=== PATIENT | female | born 1945 | race Caucasian/White ===

== ENCOUNTER 2021-12-23 14:18 | Inpatient (IN) | payer OTHER ==
[~2021-12-23] VITALS: Ht 142.2 cm; Wt 34.9 kg
[2021-12-23 15:00] VITALS: BP_SYST 114
--- NOTE | 2021-12-23 15:04 | NUR ---
Triaged pt and placed in Tent. Pt accompanied by daughter. Pt is A&Ox4. C/O RUQ pain 4/10, fever, chills, body aches. NKA. Has hx of GI surgery, Hysterectomy, Colonectomy, Ataxia, Short Bowel Syndrome. Pt in wheelchair but can ambulate at home. Currently has a stent in gallbladder and has a schedules surhery at the end of this month to have gallbladder removed. No chest pain and no sob. Denies n/v.
--- NOTE | 2021-12-23 15:30 | NUR ---
Patient to ER Tent 1 to gown for evaluation. Side rails up. Report given to Elise CRUZ.
[2021-12-23 15:37] LABS: BASOPHILS % (AUTO) 0.7 % (0.0-2.0); EOSINOPHILS % (AUTO) 0.4 % (0.0-4.0); HEMATOCRIT 36.5 % (36-48); HEMOGLOBIN 12.5 g/dL (12.0-16.0); LYMPHOCYTES # (AUTO) 0.7 K/uL (1.0-5.5); LYMPHOCYTES % (AUTO) 10.5 % (20.5-51.5); MEAN CORPUSCULAR HEMOGLOBIN 33 pg (27-31); MEAN CORPUSCULAR HGB CONC 34 % (32-36); MEAN CORPUSCULAR VOLUME 97 fL (79.0-98.0); MONOCYTES # (AUTO) 0.6 K/uL (0.0-1.0); MONOCYTES % (AUTO) 8.5 % (1.7-9.3); NEUTROPHILS # (AUTO) 5.4 K/uL (1.8-7.7); NEUTROPHILS % (AUTO) 79.9 % (40.0-70.0); PLATELET COUNT (AUTO) 168 K/uL (130-430); RED BLOOD CELL COUNT(AUTO) 3.78 MIL/uL (4.2-6.2); RED CELL DISTRIBUTION WIDTH 13.2 % (9.0-15.0); WHITE BLOOD COUNT (AUTO) 6.7 K/uL (4.8-10.8)
[2021-12-23 15:58] LABS: ANION GAP 9 (5-15); CALCIUM 9.5 mg/dL (8.4-11.0); CHLORIDE 104 mmol/L (98-107); CREATININE 1.03 mg/dL (0.55-1.30); GLUCOSE 110 mg/dL (70-99); POTASSIUM 5.2 mmol/L (3.5-5.1); SODIUM SERUM 142 mmol/L (136-145); UREA NITROGEN, BLOOD 23 mg/dL (8-21)
[2021-12-23 16:04] LABS: ALANINE AMINOTRANSFERASE 18 U/L (12-78); ALBUMIN 3.8 g/dL (3.4-4.8); ASPARTATE AMINOTRANSFERASE 16 U/L (10-37); LIPASE 330 U/L (73-393); TOTAL BILIRUBIN 0.9 mg/dL (0.0-1.0)
--- NOTE | 2021-12-23 16:20 | NUR ---
ER at bedside examining patient.
--- NOTE | 2021-12-23 16:23 | NUR ---
Covid swab done and sent to lab.
--- NOTE | 2021-12-23 16:39 | NUR ---
Pt moved to bed #5 report given to Reanna LEONARDO
--- NOTE | 2021-12-23 16:40 | NUR ---
RECEIVED PT FROM JORDEN BRUCE. PT AAOX4. RESP E/U. ON R/A. NO DISTRESS NOTED. ABDOMEN SOFT, TENDER, NONDISTENDED. BOWEL SOUNDS X4 QUADS. PT DENIES N/V/C/D. URINE OBTAINED AND TAKEN TO LAB. PT RECEIVING U/S AT THIS TIME.
[2021-12-23] MEDS ORDERED: MORPHINE 4 MG INJ. 4 MG/ML VIAL IVP ONE (16:45)
--- NOTE | 2021-12-23 16:50 | NUR ---
PT RECEIVING U/S AT THIS TIME.
[2021-12-23 17:06] LABS: BILIRUBIN,URINE NEGATIVE (NEGATIVE); BLOOD, URINE 3+ (NEGATIVE); COLOR,URINE YELLOW (YELLOW); GLUCOSE,URINE NEGATIVE (NEGATIVE); KETONES,URINE NEGATIVE (NEGATIVE); LEUKOCYTE ESTERASE ,URINE NEGATIVE (NEGATIVE); NITRITE, URINE NEGATIVE (NEGATIVE); PH,URINE 5.5 (5.0-8.0); PROTEIN URINE NEGATIVE (NEGATIVE); UROBILINOGEN,URINE 0.2 (0.2-1.0)
[2021-12-23 17:20] LABS: CLARITY/URINE HAZY (CLEAR)
[2021-12-23 17:21] LABS: BACTERIA,URINE FEW /HPF (None Seen); MUCUS,URINE None Seen /LPF (None Seen); RBC,URINE 0-3 /HPF (0-3); WBC,URINE 0-3 /HPF (0-3)
--- NOTE | 2021-12-23 17:32 | NUR ---
PATIENT IS REFUSING MORPHINE AT THIS TIME. PATIENT TOOK 1 GM OF TYLENOL AT 1300. PATIENT REPORTS SHE DOES NOT WANT ANY PAIN MEDICATION. NOTIFIED
[2021-12-23 19:00] LABS: CALCIUM OXALATE CRYSTALS,UR 0-10 /HPF (None Seen)
--- NOTE | 2021-12-23 19:14 | NUR ---
PT ENDORSED TO JORDEN AGOSTO. ALL QUESTIONS AND CONCERNS ADDRESSED.
--- NOTE | 2021-12-23 20:24 | NUR ---
20:00. Pt is resting in bed, a/o x 4. No s/s of distress or bleeding. Reports 3/10 pain on right upper quadrant. Pt refused pain medication and reported pain is tolerable.
[2021-12-23] MEDS ORDERED: NACL 0.9% 1,000 ML IV ONE (20:30)
--- NOTE | 2021-12-23 20:38 | NUR ---
AT BEDSIDE FOR RE-EVALUATION
[2021-12-23] MEDS ORDERED: metroNIDAZOLE 500 mg/NS 100 ML IV ONE (20:45)
[2021-12-23] MEDS ORDERED: PIPERACILLIN/TAZO 3.375 GM in NS 50 ML IV ONE (20:45)
--- NOTE | 2021-12-23 21:23 | NUR ---
Admit bed requested Patient will be admitted to care of Dr. WATERS. Admitted to TELEMETRY unit. Diagnosis SEPSIS, CHOLELITHIASIS Inpatient (Yes or No) YES Observation (Yes or No) NO Orientation concerns or request close to nursing station (Yes or No) NO Covid Status NEG On vent or bipap NO Isolation requirements NO Needs a sitter N From Home (Yes or if No enter name of facility) H Requires Dialysis (Yes or No) N Med Rec Completed (Yes of No) Y
[2021-12-23] MEDS ORDERED: PIPERACILLIN/TAZOBACTAM 3.375 GM/VIAL (ZOSYN) IV ONE (21:59)
[2021-12-23] MEDS: D5/0.45 NS 1,000 ML IV SCH (22:08)
[2021-12-23 22:37] VITALS: BP_SYST 136
--- NOTE | 2021-12-23 22:48 | NUR ---
20:55. IV catheter gauge 20 inserted on right forearm. Patient started on NS IV 1000ml x 1 bolus. patient tolerated IV insertion and IV bolus. 22:00. Zosyn IVPB 3.375 gm and Flagyl 500 mg IVPB administered. Tolerated well. No apparent distress. Patient is to be admitted under Dr. Torres. 22:37. Patient was brought to telemetry unit, safely transferred to bed 111 bed A and report given to JORDEN Shields. Patient is NPO at this time.GI consult DR. Valladares and Surgery Dr. Iglesias. All needs attended.
--- NOTE | 2021-12-23 23:50 | NUR ---
CONSULTATION CALLED FOR DR. CHICA LANDRUM IS OPTICAL DESIGN ENGINEER CONSULT FOR CHOLELITHIASIS ORDER BY DR. Skylar WATERS SPOKE WITH NEIL
[2021-12-24 01:00] VITALS: BP_SYST 128
--- NOTE | 2021-12-24 06:41 | NUR ---
CLOSING NOTE PATIENT IN BED, RESTING. NO S/S OF ACUTE DISTRESS. BREATHING IS EVEN AND UNLABORED. IVF INFUSING WELL. IV SITE PATENT, NO SINGS OF INFILTRATION OR INFECTION NOTED. ALL NEEDS MET THROUGHOUT SHIFT. FALL, SAFETY PRECAUTIONS MAINTAINED THROUGHOUT SHIFT. WILL CONTINUE TO MONITOR UNTIL PATIENT IS ENDORSED TO ONCOMING DAYSHIFT NURSE.
[2021-12-24 07:52] VITALS: BP_SYST 157
--- NOTE | 2021-12-24 07:52 | NUR ---
INITIAL ROUNDS Received pt AAOx4, no s/s resp distress, no c/o pain or discomfort, pt placed onto bed avalos and had a large, soft bowel movement. IVF infusing well at ordered rate with no s/s infiltration to site. Plan of care for the day reviewed with pt-pt verbalized her understanding. Pt's temperature 100.8 F, cooling measures initiated. Side rails up x3, bed alarm on for safety. Call light within reach.
[2021-12-24 08:08] LABS: ANION GAP 7 (5-15); CALCIUM 7.9 mg/dL (8.4-11.0); CHLORIDE 103 mmol/L (98-107); GLUCOSE 110 mg/dL (70-99); POTASSIUM 3.6 mmol/L (3.5-5.1); SODIUM SERUM 136 mmol/L (136-145); UREA NITROGEN, BLOOD 16 mg/dL (8-21)
--- NOTE | 2021-12-24 08:47 | NUR ---
CONSULT SURGERY CHOLELITHIASIS ARIANA CLAYTON [phone] S/W [facility] EXCHANGE Addendum: 12/24/21 at 0940 by Sarah Dudley OR/ DR HYLTON IS COLLECTION CORRESPONDENT S/W [place] @ [phone]
[2021-12-24] MEDS: D5/0.45 NS 1,000 ML IV SCH ×2 (10:09→21:43)
[2021-12-24] MEDS ORDERED: ACETAMINOPHEN 325 MG TABLET PO PRN (10:15)
[2021-12-24] MEDS ORDERED: HYDROcodone/ACETAMIN 5-325 MG TAB (NORCO/ VICODIN) PO PRN (10:15)
[2021-12-24] MEDS ORDERED: LORazepam 2 MG/ML VIAL IVP PRN (10:15)
[2021-12-24] MEDS ORDERED: NALOXONE HCL 0.4 MG/ML AMP (NARCAN) IVP PRN ×2 (10:15)
[2021-12-24] MEDS ORDERED: HYDROcodone/ACETAMIN 10-325 MG TAB PO PRN (10:15)
[2021-12-24] MEDS ORDERED: ONDANSETRON HCL 4 MG/2 ML VIAL IVP PRN (10:15)
--- NOTE | 2021-12-24 10:22 | NUR ---
CONSULT ID POSSIBLE SEPSIS ROCIO ROSAS [phone] S/W [facility] EXCHANGE FACESHEET FAXED TO [phone]
[2021-12-24] MEDS ORDERED: PANTOPRAZOLE SODIUM 40 MG TAB PO ONE (10:30)
[2021-12-24] MEDS ORDERED: P-EPHED SUL/LORATADINE TAB.SR.12H PO ONE (10:30)
[2021-12-24] MEDS: ACETAMINOPHEN 325 MG TABLET PO PRN (10:55)
[2021-12-24] MEDS: cefTRIAXone 1 GM IVPB PREMIX 50 ML IV SCH (12:03)
[2021-12-24 12:05] VITALS: BP_SYST 130
[2021-12-24 16:16] VITALS: BP_SYST 120
[2021-12-24] MEDS ORDERED: MAGNESIUM CITRATE 300 ML ORAL SOLUTION PO ONE (16:45)
--- NOTE | 2021-12-24 16:53 | NUR ---
CONSULT CARDIOLOGY CLEARANCE FOR SURGERY KENISHA HGAEN [phone] S/W [facility] EXCHANGE
--- NOTE | 2021-12-24 18:44 | NUR ---
CLOSING NOTE Pt resting quietly in bed with no s/s resp distress, no c/o pain except for a sore throat. Pt currently NPO for Hida Scan tonight. Will endorse to night shift manager nurse to give hot tea once pt comes back from the test for her throat. IVF infusing well at ordered rate with no s/s infiltration to site. All precautions remain in place. Call light within reach.
[2021-12-24 21:30] VITALS: BP_SYST 140
--- NOTE | 2021-12-24 21:30 | NUR ---
HIDA Scan completed , denies any abdominal pain .
[2021-12-24] MEDS: P-EPHED SUL/LORATADINE TAB.SR.12H PO SCH (21:43)
[2021-12-25 00:20] VITALS: BP_SYST 126
--- NOTE | 2021-12-25 00:49 | NUR ---
Patient resting no sign of acute discomfort, with IV fluid for hydration.
--- NOTE | 2021-12-25 06:25 | NUR ---
Slept well denies any abdominal pain.
[2021-12-25 07:33] LABS: PROTHROMBIN TIME 10.1 SECS (9.5-12.5)
[2021-12-25 08:12] VITALS: BP_SYST 158
--- NOTE | 2021-12-25 08:12 | NUR ---
INITIAL ROUNDS Received pt AAOx4, no s/s resp distress, no c/o pain or discomfort, pt placed onto bed avalos and voided with small amount of bowel movement noted. Pt afebrile. IVF infusing well at ordered rate with no s/s infiltration to site. Plan of care for the day reviewed with pt-pt verbalized her understanding. Side rails up x3, bed alarm on for safety. Call light within reach.
[2021-12-25 08:57] LABS: SODIUM SERUM 140 mmol/L (136-145)
[2021-12-25 09:14] LABS: ALANINE AMINOTRANSFERASE 14 U/L (12-78); ANION GAP 9 (5-15); ASPARTATE AMINOTRANSFERASE 18 U/L (10-37); C-REACTIVE PROTEIN QUANT 0.9 mg/dL (0-0.5); CALCIUM 7.7 mg/dL (8.4-11.0); CHLORIDE 104 mmol/L (98-107); CREATININE 0.66 mg/dL (0.55-1.30); GLUCOSE 102 mg/dL (70-99); POTASSIUM 3.1 mmol/L (3.5-5.1); TOTAL BILIRUBIN 0.6 mg/dL (0.0-1.0); UREA NITROGEN, BLOOD 6 mg/dL (8-21)
[2021-12-25] MEDS: PANTOPRAZOLE SODIUM 40 MG TAB PO SCH (09:29)
[2021-12-25] MEDS: P-EPHED SUL/LORATADINE TAB.SR.12H PO SCH ×2 (09:32→20:11)
[2021-12-25] MEDS: D5/0.45 NS 1,000 ML IV SCH ×2 (09:35→18:59)
--- NOTE | 2021-12-25 10:47 | NUR ---
Dietitian Recommendations * Clear liquid diet w/ advance to soft diet as tolerated * Provide Ensure Clear TID w/ meals while on CLD, provide Ensure Enlive ONS TID w/ meals when diet is advanced Please refer to nutrition assessment for details. NORMA CARPENTER
[2021-12-25 12:06] LABS: BASOPHILS % (AUTO) 0.4 % (0.0-2.0); EOSINOPHILS % (AUTO) 0.3 % (0.0-4.0); HEMATOCRIT 34.8 % (36-48); LYMPHOCYTES # (AUTO) 0.6 K/uL (1.0-5.5); LYMPHOCYTES % (AUTO) 17.9 % (20.5-51.5); MEAN CORPUSCULAR HEMOGLOBIN 33 pg (27-31); MEAN CORPUSCULAR HGB CONC 35 % (32-36); MEAN CORPUSCULAR VOLUME 97 fL (79.0-98.0); MONOCYTES # (AUTO) 0.4 K/uL (0.0-1.0); MONOCYTES % (AUTO) 13.1 % (1.7-9.3); NEUTROPHILS # (AUTO) 2.3 K/uL (1.8-7.7); NEUTROPHILS % (AUTO) 68.3 % (40.0-70.0); PLATELET COUNT (AUTO) 142 K/uL (130-430); RED BLOOD CELL COUNT(AUTO) 3.58 MIL/uL (4.2-6.2)
[2021-12-25 12:09] LABS: WHITE BLOOD COUNT (AUTO) 3.4 K/uL (4.8-10.8)
[2021-12-25] MEDS: cefTRIAXone 1 GM IVPB PREMIX 50 ML IV SCH (12:35)
[2021-12-25 14:23] LABS: ERYTHROCYTE SEDIMENTATION RATE 21 MM/HR (0-20)
[2021-12-25 16:18] VITALS: BP_SYST 141
[2021-12-25] MEDS ORDERED: POTASSIUM CHLORIDE 40 MEQ, LIDOCAINE JECT 2% PF 100 MG 50 MG in NS 250 ML IV ONE (19:00)
[2021-12-25] MEDS ORDERED: POTASSIUM CHLORIDE 40 MEQ in NS 250 ML IV ONE (19:00)
--- NOTE | 2021-12-25 19:00 | NUR ---
CLOSING NOTE Pt resting quietly in bed with no s/s resp distress, no c/o pain or discomfort. IVF infusing well at ordered rate with no s/s infiltration to site. Pt aware to have nothing to eat post midnight for possible gallbladder surgery tomorrow by Dr. Gorge Grissom. Also NPO for MRCP in the morning. Pt just given bed avalos, voided with loose bowel movement. Pt cleaned, fresh chux placed. Skin and safety precautions remain in place. Call light within reach.
[2021-12-25] MEDS ORDERED: KCL 40 mEq in 100 mL (PREMIX) 100 ML IV ONE (19:15)
[2021-12-25] MEDS ORDERED: KCL 20 mEq in 100 mL (PREMIX) 100 ML IV SCH (19:30)
[2021-12-25 20:00] VITALS: BP_SYST 139
--- NOTE | 2021-12-26 00:17 | NUR ---
Patient instructed NPO for MRCP in am denies any abdominal pain , on IV hydration.
[2021-12-26 00:30] VITALS: BP_SYST 131
--- NOTE | 2021-12-26 02:08 | NUR ---
PATIENT RESTING: Patient resting quietly. No acute distress noted, on IV fluid for hydration
[2021-12-26] MEDS: D5/0.45 NS 1,000 ML IV SCH ×3 (03:43→19:30)
--- NOTE | 2021-12-26 07:01 | NUR ---
Paged Dr. Gorge Grissom to inform regarding consult , spoke to Dorene
[2021-12-26 07:27] LABS: BASOPHILS % (AUTO) 0.5 % (0.0-2.0); EOSINOPHILS % (AUTO) 1.3 % (0.0-4.0); HEMATOCRIT 33.7 % (36-48); HEMOGLOBIN 11.7 g/dL (12.0-16.0); LYMPHOCYTES # (AUTO) 0.8 K/uL (1.0-5.5); LYMPHOCYTES % (AUTO) 31.3 % (20.5-51.5); MEAN CORPUSCULAR HEMOGLOBIN 34 pg (27-31); MEAN CORPUSCULAR HGB CONC 35 % (32-36); MEAN CORPUSCULAR VOLUME 97 fL (79.0-98.0); MONOCYTES # (AUTO) 0.4 K/uL (0.0-1.0); MONOCYTES % (AUTO) 14.3 % (1.7-9.3); NEUTROPHILS # (AUTO) 1.3 K/uL (1.8-7.7); NEUTROPHILS % (AUTO) 52.6 % (40.0-70.0); PLATELET COUNT (AUTO) 148 K/uL (130-430); RED BLOOD CELL COUNT(AUTO) 3.47 MIL/uL (4.2-6.2); RED CELL DISTRIBUTION WIDTH 12.8 % (9.0-15.0); WHITE BLOOD COUNT (AUTO) 2.5 K/uL (4.8-10.8)
[2021-12-26 07:45] LABS: PROTHROMBIN TIME 10.4 SECS (9.5-12.5)
[2021-12-26 08:05] VITALS: BP_SYST 122
[2021-12-26 08:42] LABS: ALANINE AMINOTRANSFERASE 15 U/L (12-78); ALBUMIN 2.8 g/dL (3.4-4.8); ANION GAP 6 (5-15); ASPARTATE AMINOTRANSFERASE 16 U/L (10-37); C-REACTIVE PROTEIN QUANT 0.7 mg/dL (0-0.5); CHLORIDE 107 mmol/L (98-107); CREATININE 0.71 mg/dL (0.55-1.30); GLUCOSE 104 mg/dL (70-99); LIPASE 213 U/L (73-393); POTASSIUM 3.7 mmol/L (3.5-5.1); SODIUM SERUM 142 mmol/L (136-145); TOTAL BILIRUBIN 0.4 mg/dL (0.0-1.0); UREA NITROGEN, BLOOD 6 mg/dL (8-21)
--- NOTE | 2021-12-26 08:42 | NUR ---
CONSULTATION PAGED/CALLED Reason for Consultation: []medical clearance for surgery Person Who was Notified: []Raysa Consulting Physician: [] Dr. Wilburn Clinical Provider Trainer Specialty: []cardio Ordering Physician: []Gorge Gale
[2021-12-26] MEDS: P-EPHED SUL/LORATADINE TAB.SR.12H PO SCH ×2 (10:33→21:19)
[2021-12-26] MEDS: PANTOPRAZOLE SODIUM 40 MG TAB PO SCH (10:33)
[2021-12-26 11:30] VITALS: BP_SYST 131
[2021-12-26] MEDS: cefTRIAXone 1 GM IVPB PREMIX 50 ML IV SCH (12:01)
[2021-12-26 12:42] LABS: ERYTHROCYTE SEDIMENTATION RATE 28 MM/HR (0-20)
[2021-12-26 16:45] VITALS: BP_SYST 126
--- NOTE | 2021-12-26 18:25 | NUR ---
DR KOCH ROUNDS DR KOCH HERE SEEN PTS. GAVE ORDER TO CANCEL MRCP. ORDER CARRIED OUT. PRIMARY RN ANNA MADE AWARE.
--- NOTE | 2021-12-26 19:00 | NUR ---
OPENING Received pt from day nurse. pt in bed alert, awake and stable at this time while on cell phone. no c/o pain or distress. vitals taken and within normal limits resp even while on RA. pt has 22g to left arm patent and intact with ivf running. skin warm to touch and clean and dry. reinforce education to patient about being NPO due to procedure in AM. pt states she understands. call light in reach bed to lowest position.
[2021-12-26 20:42] VITALS: BP_SYST 131
--- NOTE | 2021-12-26 23:00 | NUR ---
pt in bed awake and stable at this time
[2021-12-27] VITALS: BP_SYST 122
--- NOTE | 2021-12-27 | NUR ---
pt currently NPO
--- NOTE | 2021-12-27 04:00 | NUR ---
PT ASLEEP RESTING COMFORTABLY WITH NO S/S OF PAIN OR DISTRESS
[2021-12-27] MEDS: D5/0.45 NS 1,000 ML IV SCH ×2 (05:30→16:29)
[2021-12-27 06:51] LABS: BASOPHILS % (AUTO) 0.6 % (0.0-2.0); EOSINOPHILS # (AUTO) 0.1 K/uL (0.0-0.4); EOSINOPHILS % (AUTO) 3.5 % (0.0-4.0); HEMATOCRIT 34.1 % (36-48); HEMOGLOBIN 11.9 g/dL (12.0-16.0); LYMPHOCYTES # (AUTO) 0.8 K/uL (1.0-5.5); MEAN CORPUSCULAR HEMOGLOBIN 34 pg (27-31); MEAN CORPUSCULAR HGB CONC 35 % (32-36); MEAN CORPUSCULAR VOLUME 96 fL (79.0-98.0); MONOCYTES # (AUTO) 0.3 K/uL (0.0-1.0); NEUTROPHILS % (AUTO) 46.9 % (40.0-70.0); PLATELET COUNT (AUTO) 151 K/uL (130-430); RED BLOOD CELL COUNT(AUTO) 3.56 MIL/uL (4.2-6.2); WHITE BLOOD COUNT (AUTO) 2.1 K/uL (4.8-10.8)
--- NOTE | 2021-12-27 06:55 | NUR ---
pt in bed alert, awake and stable. no c/o pain or distress noted. report giving to day nurse to continue care. all question answered with no concerns.
[2021-12-27 07:00] LABS: ANION GAP 6 (5-15); CHLORIDE 106 mmol/L (98-107); CREATININE 0.69 mg/dL (0.55-1.30); GLUCOSE 90 mg/dL (70-99); POTASSIUM 3.2 mmol/L (3.5-5.1); SODIUM SERUM 142 mmol/L (136-145); UREA NITROGEN, BLOOD 5 mg/dL (8-21)
[2021-12-27 08:13] VITALS: BP_SYST 139
[2021-12-27] MEDS: PANTOPRAZOLE SODIUM 40 MG TAB PO SCH (08:15)
[2021-12-27] MEDS: P-EPHED SUL/LORATADINE TAB.SR.12H PO SCH ×2 (08:15→21:41)
--- NOTE | 2021-12-27 08:51 | NUR ---
paged dr екатерина auguste for cardiac clearance frommd.
[2021-12-27] MEDS ORDERED: POTASSIUM CHLORIDE 40 MEQ in D5W 250 ML IV ONE (10:00)
[2021-12-27 11:17] VITALS: BP_SYST 146
[2021-12-27] MEDS: cefTRIAXone 1 GM IVPB PREMIX 50 ML IV SCH (11:26)
[2021-12-27] MEDS ORDERED: GLYCOPYRROLATE 0.2 MG/ML VIAL ONE (12:20)
[2021-12-27] MEDS ORDERED: DEXAMETHASONE SOD PHOSPHATE 4 MG/ML VIAL ONE (12:20)
[2021-12-27] MEDS ORDERED: ONDANSETRON HCL 4 MG/2 ML VIAL ONE (12:20)
[2021-12-27] MEDS ORDERED: SUCCINYLCHOLINE CHLORIDE 20 MG/ML(QUELICIN) ONE (12:20)
[2021-12-27] MEDS ORDERED: ETOMIDATE 20 MG/ 10 ML VIAL (AMIDATE) ONE (12:20)
[2021-12-27] MEDS ORDERED: METOPROLOL TARTRATE 5 MG/5 ML AMPUL ONE (12:20)
[2021-12-27] MEDS ORDERED: ROCURONIUM BROMIDE 10 MG/ML (ZEMURON) ONE (12:20)
[2021-12-27] MEDS ORDERED: fentaNYL CITRATE/PF 100 MCG/2 ML AMP ONE (12:20)
[2021-12-27] MEDS ORDERED: NEOSTIGMINE METHYLSULFATE 1 MG/ML, 10 ML VIAL ONE (12:20)
[2021-12-27] MEDS ORDERED: D5/0.45 NS 1,000 ML IV.SOLN IV ONE (12:20)
[2021-12-27] MEDS ORDERED: SEVOFLURANE 15 MIN GAS INH ONE (12:20)
[2021-12-27] MEDS ORDERED: BUPIVACAINE LIPOSOME/PF 266 MG/20 ML VIAL INFIL ONE (13:21)
[2021-12-27] MEDS ORDERED: MORPHINE 4 MG INJ. 4 MG/ML VIAL IVP PRN (14:15)
[2021-12-27] MEDS ORDERED: MEPERIDINE HCL/PF 25 MG/ML DISP.SYRIN IVP PRN (14:15)
[2021-12-27] MEDS ORDERED: ONDANSETRON HCL 4 MG/2 ML VIAL IVP PRN ×2 (14:15→14:45)
[2021-12-27] MEDS ORDERED: HYDROmorphone 1 MG/ML INJ. CARTRIDGE IVP PRN (14:45)
[2021-12-27] MEDS ORDERED: D5/0.45 NS 1,000 ML IV SCH (14:45)
[2021-12-27] MEDS ORDERED: ACETAMINOPHEN 325 MG TABLET PO PRN (14:45)
[2021-12-27] MEDS ORDERED: NALOXONE HCL 0.4 MG/ML AMP (NARCAN) IVP PRN ×3 (14:45)
[2021-12-27 16:15] VITALS: BP_SYST 99
--- NOTE | 2021-12-27 16:18 | NUR ---
PT CAME BACK FROM SURGERY/PACU. PT IS DROWSY BUT AROUSABLE. VITALS WNL. NO FEVER. NO BLEEDING FROM ABDOMINAL DRESSING NOTED. SOME BLOOD DRAINAGE ON THE EUGENIE. WILL CONT TO MONITOR.
[2021-12-27] MEDS: CEFAZOLIN 1 GM IVPB PREMIX 50 ML IV SCH ×2 (16:24→23:04)
[2021-12-27] MEDS: ACETAMINOPHEN 325 MG TABLET PO PRN (18:24)
--- NOTE | 2021-12-27 18:26 | NUR ---
20 CC OF RED DRAINAGE FROM EUGENIE. TYLENOL GIVEN,
--- NOTE | 2021-12-27 18:48 | NUR ---
PATIENT'S VITALS WNL. NO FEVER. PAIN RELIEVED WITH TYLENOL.
[2021-12-27 20:00] VITALS: BP_SYST 125
[2021-12-27] MEDS: HYDROcodone/ACETAMIN 5-325 MG TAB (NORCO/ VICODIN) PO PRN (21:36)
[2021-12-27] MEDS: FAMOTIDINE PF 20 MG/2 ML VIAL IVP SCH (21:37)
[2021-12-28 00:42] VITALS: BP_SYST 131
[2021-12-28] MEDS: D5/0.45 NS 1,000 ML IV SCH ×2 (03:10→04:26)
[2021-12-28 06:43] LABS: BASOPHILS % (AUTO) 0.1 % (0.0-2.0); HEMATOCRIT 30.9 % (36-48); LYMPHOCYTES # (AUTO) 0.5 K/uL (1.0-5.5); LYMPHOCYTES % (AUTO) 4.6 % (20.5-51.5); MEAN CORPUSCULAR HEMOGLOBIN 34 pg (27-31); MEAN CORPUSCULAR HGB CONC 36 % (32-36); MEAN CORPUSCULAR VOLUME 95 fL (79.0-98.0); MONOCYTES # (AUTO) 0.6 K/uL (0.0-1.0); MONOCYTES % (AUTO) 5.4 % (1.7-9.3); NEUTROPHILS # (AUTO) 9.5 K/uL (1.8-7.7); NEUTROPHILS % (AUTO) 89.9 % (40.0-70.0); PLATELET COUNT (AUTO) 137 K/uL (130-430); RED BLOOD CELL COUNT(AUTO) 3.25 MIL/uL (4.2-6.2); RED CELL DISTRIBUTION WIDTH 12.6 % (9.0-15.0); WHITE BLOOD COUNT (AUTO) 10.6 K/uL (4.8-10.8)
--- NOTE | 2021-12-28 07:30 | NUR ---
Report received from shift supervisor melting RN for continuity of care. Patient stable condition. No distress noted. Will continue to monitor. Patient found in bed. Fluids running.
[2021-12-28 08:00] VITALS: BP_SYST 124
[2021-12-28] MEDS: P-EPHED SUL/LORATADINE TAB.SR.12H PO SCH ×2 (08:45→20:22)
[2021-12-28] MEDS: PANTOPRAZOLE SODIUM 40 MG TAB PO SCH (08:45)
[2021-12-28] MEDS: FAMOTIDINE PF 20 MG/2 ML VIAL IVP SCH ×2 (08:48→20:22)
[2021-12-28] MEDS: HYDROcodone/ACETAMIN 5-325 MG TAB (NORCO/ VICODIN) PO PRN ×2 (08:58→20:28)
[2021-12-28 09:38] LABS: ERYTHROCYTE SEDIMENTATION RATE 28 MM/HR (0-20)
[2021-12-28 09:41] LABS: ALANINE AMINOTRANSFERASE 43 U/L (12-78); ALBUMIN 2.6 g/dL (3.4-4.8); ANION GAP 7 (5-15); ASPARTATE AMINOTRANSFERASE 56 U/L (10-37); C-REACTIVE PROTEIN QUANT 1.4 mg/dL (0-0.5); CALCIUM 7.2 mg/dL (8.4-11.0); CHLORIDE 105 mmol/L (98-107); CREATININE 0.95 mg/dL (0.55-1.30); GLUCOSE 146 mg/dL (70-99); POTASSIUM 3.7 mmol/L (3.5-5.1); SODIUM SERUM 137 mmol/L (136-145); TOTAL BILIRUBIN 0.4 mg/dL (0.0-1.0); UREA NITROGEN, BLOOD 9 mg/dL (8-21)
--- NOTE | 2021-12-28 11:10 | NUR ---
F/C removed. No distress noted. Output: 100 mL clear yellow urine
--- NOTE | 2021-12-28 11:15 | NUR ---
Kobe Pettit, spoke with radiologist regarding MRCP procedure due to patient having stent. MRCP unable to be performed according to radiologist. Wilver spoke with patient's family. Dr. Torres made aware of situation.
[2021-12-28 12:00] VITALS: BP_SYST 120
[2021-12-28] MEDS: cefTRIAXone 1 GM IVPB PREMIX 50 ML IV SCH (13:25)
[2021-12-28 16:00] VITALS: BP_SYST 130
--- NOTE | 2021-12-28 16:00 | NUR ---
Patient requested COVID swab due o
[2021-12-28 16:06] VITALS: BP_SYST 134
--- NOTE | 2021-12-28 17:05 | NUR ---
Nutrition F/U RD reviewed pts current EMR including diet hx, physician notes, nursing notes, pertinent labs/meds/procedures, care trends, and care activity. Admitting Dx: Sepsis, Cholelithiasis PMH: CBD placement, GERD, CHF, CAD, HTN Per MD note, the patient presented w/ abdominal pain which is most likely to be R/t cholelithiasis (abd US revealed multiple gallbladder stones), hx of CBD stent placement ~2 months ago, noted w/ constipation per imaging, right renal cyst. --s/p HIDA scan: revealed cystic duct obstruction. Pt agreeable to gallbladder removal, cardiac clearance was required first. Cardiology gave approval, and pt is s/p lap nina 12/27 Current Diet Order/Nutrition Support: Clear liquid diet x 2 Subjective Info: RD met with the pleasant patient bedside. Patient stated her appetite is well and "I could eat all day. Patient expressed concern for high sugar in her current clear liquid diet because she is pre-diabetic. RD explained the importance of the Ensure clear ONS and other clear fluids at this time, and informed patient that the CL diet is only temporary while she is healing plus discussed the process of slow diet advancement. Patient seemed satisfied with this explanation/process. Patient informed RD of her hx of SB resection/SBS. Patient said loose BMs are her normal. --Per previous RD note: The patient states: I needed TPN for a prolonged period of time and it damaged my liver. The patient reports her weight has been stable and UBW is ~70#. Although BMI is <18.5 kg/m2, the patient appears well nourished, no signs of orbital hollowing, no temporal wasting noted, no obvious bony prominences at clavicles or shoulders. Current % PO: CLD w/ 75% intake x3 meals documented on 12/28 Estimated Energy Expenditure (kcals/day) 6200-4927 kcals/d (CBW 35kg, 30-35 kcals/kg, underweight) Estimated Protein Required (g/day) 28-42 gm protein/d (CBW 35kg, .8-1.2 gm pro/kg, geriatric) Estimated Fluid Required (l/day) 1-1.2 liters fluid/d or per MD Problem/Etiology/Signs/Symptoms * Predicted suboptimal nutrient absorption r/t GI function a/e/b hx bowel resection, SBS, BMI <18.5kg/m2 (New) * Increased nutritional needs R/T physiological demands AEB estimated nutritional requirements for pre-op/post-op (Ongoing) Expected Outcomes/Goals Monitor tolerance of PO diet w/ goal of patient meeting greater than 75% of estimated needs, nutrition-related labs trending within acceptable range, GI function at baseline, normal skin integrity, promote gradual weight gain toward healthier weight status Dietitian Recommendations * Continue clear liquid diet w/ advance to soft diet as tolerated * Rec daily MVI * Encourage good PO intake Follow Up: High Risk F/U in 2-3days Follow Up Date: 12/30-12/31
--- NOTE | 2021-12-28 17:12 | NUR ---
Dietitian Recommendations * Continue clear liquid diet w/ advance to soft diet as tolerated * Rec daily MVI * Encourage good PO intake Please refer to Nutrition f/u Assessment for details, thanks! CC, MPH, RDN
--- NOTE | 2021-12-28 19:51 | NUR ---
Report given to JORDEN Hudson for continuity of care. Patient in stable condition. No distress.
--- NOTE | 2021-12-28 20:00 | NUR ---
19:50. Patient received awake and alert. NO s/s of distress noted. Patient is pending with Covid swab result. Patient has non-productive cough, denies shortness of breath and no othe symptoms reported. EUGENIE drain on LLQ intact with sanguineous drainage < 30 ml.
--- NOTE | 2021-12-28 20:00 | NUR ---
IV catheter on right forearm was removed due to swelling and redness that was present during hand off report. Inserted an new angiocath gauge 22 on left forearm with good blood return. Tolerated well by pt.
[2021-12-28 20:30] VITALS: BP_SYST 124
--- NOTE | 2021-12-28 21:33 | NUR ---
paged doctor doctor cuellar was paged
--- NOTE | 2021-12-28 23:26 | NUR ---
21:40. Patient was transferred to Room 120 A for Covid 19 isolation. 22:43. Patient's son in [place] called back and made aware that pt is positive for Covid 19 and now isolated in room 120A. He was made aware also that pt can't have any visitors while on isolation.
[2021-12-29 00:42] VITALS: BP_SYST 128
[2021-12-29] MEDS: D5/0.45 NS 1,000 ML IV SCH ×3 (01:42→21:10)
[2021-12-29 04:25] VITALS: BP_SYST 117
--- NOTE | 2021-12-29 06:49 | NUR ---
CLOSING NOTES: No significant changes/events overnight. No apparent distress or active bleeding observed. Dressing on right lower abdomen's EUGENIE drain site is intact and dry. Patient denies pain, shortness of breath or dizziness. Remains on IVF D5 1/2 NS at 100 ml/hr, tolerating well. All needs attended. Will endorse to morning RN.
[2021-12-29 06:59] LABS: BASOPHILS % (AUTO) 0.1 % (0.0-2.0); EOSINOPHILS % (AUTO) 0.1 % (0.0-4.0); HEMATOCRIT 27.4 % (36-48); HEMOGLOBIN 9.7 g/dL (12.0-16.0); LYMPHOCYTES # (AUTO) 0.8 K/uL (1.0-5.5); LYMPHOCYTES % (AUTO) 10.1 % (20.5-51.5); MEAN CORPUSCULAR HEMOGLOBIN 34 pg (27-31); MEAN CORPUSCULAR HGB CONC 35 % (32-36); MEAN CORPUSCULAR VOLUME 95 fL (79.0-98.0); MONOCYTES # (AUTO) 0.6 K/uL (0.0-1.0); MONOCYTES % (AUTO) 7.8 % (1.7-9.3); NEUTROPHILS # (AUTO) 6.5 K/uL (1.8-7.7); NEUTROPHILS % (AUTO) 81.9 % (40.0-70.0); PLATELET COUNT (AUTO) 144 K/uL (130-430); RED BLOOD CELL COUNT(AUTO) 2.89 MIL/uL (4.2-6.2); RED CELL DISTRIBUTION WIDTH 12.5 % (9.0-15.0); WHITE BLOOD COUNT (AUTO) 7.9 K/uL (4.8-10.8)
[2021-12-29 07:19] LABS: CALCIUM 7.6 mg/dL (8.4-11.0); CREATININE 0.81 mg/dL (0.55-1.30); GLUCOSE 113 mg/dL (70-99); SODIUM SERUM 141 mmol/L (136-145); UREA NITROGEN, BLOOD 4 mg/dL (8-21)
[2021-12-29 08:05] LABS: ANION GAP 10 (5-15); CHLORIDE 108 mmol/L (98-107)
[2021-12-29 08:14] LABS: POTASSIUM 2.7 mmol/L (3.5-5.1)
[2021-12-29] MEDS: P-EPHED SUL/LORATADINE TAB.SR.12H PO SCH ×2 (09:00→21:10)
[2021-12-29] MEDS: PANTOPRAZOLE SODIUM 40 MG TAB PO SCH (09:00)
--- NOTE | 2021-12-29 09:53 | NUR ---
HIGH ALERT NOTE: WAS HERE AND GAVE ORDER FOR [facility]-RIDER.
[2021-12-29] MEDS ORDERED: POTASSIUM CHLORIDE 40 MEQ in NS 250 ML IV ONE (10:00)
[2021-12-29] MEDS: FAMOTIDINE PF 20 MG/2 ML VIAL IVP SCH ×2 (10:14→21:07)
[2021-12-29] MEDS: HYDROcodone/ACETAMIN 5-325 MG TAB (NORCO/ VICODIN) PO PRN ×2 (10:15→21:09)
--- NOTE | 2021-12-29 11:56 | NUR ---
pt assessed thsi morning and she is currently wit no change in condition from previous shift. daughter Inez called an update given. left sided abd pain present and pain meds given and pain is currently manageable per pt verbalization. pt tolerated morning diet well. care resumed and pt was also placed on bedpan.
[2021-12-29] MEDS: cefTRIAXone 1 GM IVPB PREMIX 50 ML IV SCH (12:13)
[2021-12-29 12:25] VITALS: BP_SYST 155
--- NOTE | 2021-12-29 12:42 | NUR ---
dr came to assess pt at bedside
--- NOTE | 2021-12-29 13:07 | NUR ---
Attempted PT visit, pt refused due to increased pain in abdomen today. Pt states 12/28, and requests to be seen for PT tomorrow. RN made aware.
[2021-12-29 16:21] VITALS: BP_SYST 144
--- NOTE | 2021-12-29 20:15 | NUR ---
Patient awake alert assist for bed avalos use , position change tolerated urine clear yellow / EUGENIE DRAIN intact with sero sang out put noted continue to monitor .
[2021-12-29 21:00] VITALS: BP_SYST 137
--- NOTE | 2021-12-29 23:03 | NUR ---
NORCO TABLET 5/325 MG PO given for general pain and helpful , patient Resting .
[2021-12-30 01:11] VITALS: BP_SYST 131
[2021-12-30] MEDS: D5/0.45 NS 1,000 ML IV SCH ×3 (04:18→23:30)
--- NOTE | 2021-12-30 04:23 | NUR ---
HOURLY Rounding patient Resting call barber given to patient chest movement symmetrical also unlabored .
[2021-12-30 07:14] LABS: BASOPHILS % (AUTO) 0.2 % (0.0-2.0); EOSINOPHILS # (AUTO) 0.1 K/uL (0.0-0.4); EOSINOPHILS % (AUTO) 1.5 % (0.0-4.0); HEMATOCRIT 27.6 % (36-48); HEMOGLOBIN 9.9 g/dL (12.0-16.0); LYMPHOCYTES # (AUTO) 0.9 K/uL (1.0-5.5); LYMPHOCYTES % (AUTO) 15.8 % (20.5-51.5); MEAN CORPUSCULAR HEMOGLOBIN 34 pg (27-31); MEAN CORPUSCULAR HGB CONC 36 % (32-36); MEAN CORPUSCULAR VOLUME 95 fL (79.0-98.0); MONOCYTES # (AUTO) 0.5 K/uL (0.0-1.0); MONOCYTES % (AUTO) 8.1 % (1.7-9.3); NEUTROPHILS # (AUTO) 4.3 K/uL (1.8-7.7); NEUTROPHILS % (AUTO) 74.4 % (40.0-70.0); PLATELET COUNT (AUTO) 151 K/uL (130-430); RED BLOOD CELL COUNT(AUTO) 2.91 MIL/uL (4.2-6.2); RED CELL DISTRIBUTION WIDTH 12.8 % (9.0-15.0); WHITE BLOOD COUNT (AUTO) 5.8 K/uL (4.8-10.8)
[2021-12-30 08:24] LABS: ALANINE AMINOTRANSFERASE 29 U/L (12-78); ALBUMIN 2.4 g/dL (3.4-4.8); ANION GAP 7 (5-15); ASPARTATE AMINOTRANSFERASE 29 U/L (10-37); C-REACTIVE PROTEIN QUANT 2.2 mg/dL (0-0.5); CALCIUM 7.6 mg/dL (8.4-11.0); CHLORIDE 109 mmol/L (98-107); CREATININE 0.76 mg/dL (0.55-1.30); GLUCOSE 90 mg/dL (70-99); POTASSIUM 3.2 mmol/L (3.5-5.1); SODIUM SERUM 143 mmol/L (136-145); TOTAL BILIRUBIN 0.5 mg/dL (0.0-1.0); UREA NITROGEN, BLOOD 4 mg/dL (8-21)
[2021-12-30 08:50] LABS: ERYTHROCYTE SEDIMENTATION RATE 39 MM/HR (0-20)
[2021-12-30] MEDS: FAMOTIDINE PF 20 MG/2 ML VIAL IVP SCH ×2 (09:26→21:00)
[2021-12-30] MEDS: PANTOPRAZOLE SODIUM 40 MG TAB PO SCH (09:26)
[2021-12-30] MEDS: P-EPHED SUL/LORATADINE TAB.SR.12H PO SCH ×2 (09:27→21:21)
[2021-12-30] MEDS ORDERED: BISMUTH SUBSALICYLATE 240 ML BOTTLE PO PRN (10:45)
[2021-12-30] MEDS ORDERED: POTASSIUM CHLORIDE 20 MEQ TAB.PRT.SR PO ONE (11:30)
[2021-12-30 12:09] VITALS: BP_SYST 167
[2021-12-30] MEDS: cefTRIAXone 1 GM IVPB PREMIX 50 ML IV SCH (12:46)
--- NOTE | 2021-12-30 13:07 | NUR ---
Attempted PT visit, pt is not cleared for PT due to having loose stool, per RN. Addendum: 12/30/21 at 1731 by Saida Palumbo PT PHYSICAL THERAPY CO-SIGN The Physical Therapy Progress Notes documented by Registered Health Nurse have been reviewed. Reviewed/Co-Signed by: Saida Palumbo PT Documentation Done by:SEBAS MCKEON PTA REC: HHPT, HOME W/ ASSIST, DME
[2021-12-30 16:00] VITALS: BP_SYST 146
[2021-12-30 16:53] VITALS: BP_SYST 167
--- NOTE | 2021-12-30 18:45 | NUR ---
Miss Carver has been assessed as indicated. She continues to deny pain, when at rest. Her abdomen is tender with activity. She has had several loose stool this shift. per bed avalos and incontinence. She has been advanced to a soft diet and is tolerating that well. Her initial surgical dressing has been removed and the stitches have been ;left GUERLINE. she does have a EUGENIE drain that pusts out a small out of SS drainage. She anticipates beinf DC to home tomorrow. She is resting quietly at this time
--- NOTE | 2021-12-30 19:43 | NUR ---
Handoff has been given to Jewel
[2021-12-31 01:40] VITALS: BP_SYST 146
--- NOTE | 2021-12-31 06:17 | NUR ---
Pt had watery BM this shift x1. Lab reports specimen sent (sender??, time??). Shift Stool Log sent to lab so Lab can initiate C.Diff. assessment.
[2021-12-31 07:51] LABS: BASOPHILS % (AUTO) 0.3 % (0.0-2.0); EOSINOPHILS # (AUTO) 0.2 K/uL (0.0-0.4); EOSINOPHILS % (AUTO) 2.5 % (0.0-4.0); HEMATOCRIT 29.2 % (36-48); HEMOGLOBIN 10.3 g/dL (12.0-16.0); LYMPHOCYTES # (AUTO) 1.1 K/uL (1.0-5.5); LYMPHOCYTES % (AUTO) 13.2 % (20.5-51.5); MEAN CORPUSCULAR HEMOGLOBIN 33 pg (27-31); MEAN CORPUSCULAR HGB CONC 35 % (32-36); MEAN CORPUSCULAR VOLUME 94 fL (79.0-98.0); MONOCYTES # (AUTO) 0.5 K/uL (0.0-1.0); MONOCYTES % (AUTO) 6.7 % (1.7-9.3); NEUTROPHILS # (AUTO) 6.3 K/uL (1.8-7.7); NEUTROPHILS % (AUTO) 77.3 % (40.0-70.0); PLATELET COUNT (AUTO) 191 K/uL (130-430); RED CELL DISTRIBUTION WIDTH 12.3 % (9.0-15.0); WHITE BLOOD COUNT (AUTO) 8.2 K/uL (4.8-10.8)
[2021-12-31 08:22] LABS: ANION GAP 4 (5-15); C-REACTIVE PROTEIN QUANT 1.3 mg/dL (0-0.5); CALCIUM 7.6 mg/dL (8.4-11.0); CHLORIDE 109 mmol/L (98-107); CREATININE 0.79 mg/dL (0.55-1.30); GLUCOSE 101 mg/dL (70-99); POTASSIUM 3.1 mmol/L (3.5-5.1); SODIUM SERUM 142 mmol/L (136-145); UREA NITROGEN, BLOOD 4 mg/dL (8-21)
[2021-12-31 08:54] LABS: ERYTHROCYTE SEDIMENTATION RATE 44 MM/HR (0-20)
[2021-12-31] MEDS: D5/0.45 NS 1,000 ML IV SCH ×2 (09:30→20:15)
[2021-12-31] MEDS: FAMOTIDINE PF 20 MG/2 ML VIAL IVP SCH ×2 (11:09→20:16)
[2021-12-31] MEDS: PANTOPRAZOLE SODIUM 40 MG TAB PO SCH (11:10)
[2021-12-31] MEDS: P-EPHED SUL/LORATADINE TAB.SR.12H PO SCH ×2 (11:11→20:16)
--- NOTE | 2021-12-31 11:50 | NUR ---
HIGH ALERT NOTE: DR WATERS WAS HERE IN ICU AND GAVE TELEPHONE ORDER FOR [facility].
[2021-12-31] MEDS: HYDROcodone/ACETAMIN 5-325 MG TAB (NORCO/ VICODIN) PO PRN ×2 (12:12→20:31)
[2021-12-31] MEDS ORDERED: POTASSIUM CHLORIDE 20 MEQ/PKT PACKET PO ONE (12:30)
[2021-12-31 12:52] VITALS: BP_SYST 130
[2021-12-31 16:11] VITALS: BP_SYST 133
--- NOTE | 2021-12-31 19:45 | NUR ---
Received pt report from Day RN. Pt received in stable condition and in no apparent distress.
[2021-12-31 20:00] VITALS: BP_SYST 122
[2022-01-01 01:47] VITALS: BP_SYST 116
[2022-01-01] MEDS: D5/0.45 NS 1,000 ML IV SCH (05:20)
[2022-01-01 07:07] LABS: BASOPHILS % (AUTO) 0.4 % (0.0-2.0); EOSINOPHILS # (AUTO) 0.2 K/uL (0.0-0.4); EOSINOPHILS % (AUTO) 4.3 % (0.0-4.0); HEMATOCRIT 26.8 % (36-48); HEMOGLOBIN 9.4 g/dL (12.0-16.0); LYMPHOCYTES # (AUTO) 1.1 K/uL (1.0-5.5); LYMPHOCYTES % (AUTO) 20.9 % (20.5-51.5); MEAN CORPUSCULAR HEMOGLOBIN 33 pg (27-31); MEAN CORPUSCULAR HGB CONC 35 % (32-36); MEAN CORPUSCULAR VOLUME 96 fL (79.0-98.0); MONOCYTES # (AUTO) 0.5 K/uL (0.0-1.0); MONOCYTES % (AUTO) 10.1 % (1.7-9.3); NEUTROPHILS # (AUTO) 3.3 K/uL (1.8-7.7); NEUTROPHILS % (AUTO) 64.3 % (40.0-70.0); PLATELET COUNT (AUTO) 233 K/uL (130-430); RED CELL DISTRIBUTION WIDTH 12.6 % (9.0-15.0); WHITE BLOOD COUNT (AUTO) 5.1 K/uL (4.8-10.8)
[2022-01-01 07:14] LABS: ANION GAP 8 (5-15); CALCIUM 7.9 mg/dL (8.4-11.0); CHLORIDE 110 mmol/L (98-107); CREATININE 0.78 mg/dL (0.55-1.30); GLUCOSE 96 mg/dL (70-99); POTASSIUM 4.2 mmol/L (3.5-5.1); SODIUM SERUM 143 mmol/L (136-145); UREA NITROGEN, BLOOD 11 mg/dL (8-21)
[2022-01-01 08:00] VITALS: BP_SYST 133
[2022-01-01 08:07] LABS: ERYTHROCYTE SEDIMENTATION RATE 39 MM/HR (0-20)
[2022-01-01 08:41] LABS: C-REACTIVE PROTEIN QUANT < 0.2 mg/dL (0-0.5)
[2022-01-01] MEDS: P-EPHED SUL/LORATADINE TAB.SR.12H PO SCH (08:52)
[2022-01-01] MEDS: FAMOTIDINE PF 20 MG/2 ML VIAL IVP SCH (08:52)
[2022-01-01] MEDS: PANTOPRAZOLE SODIUM 40 MG TAB PO SCH (08:52)
[2022-01-01] MEDS ORDERED: HYDR-3927 PO (09:31)
[2022-01-01] MEDS ORDERED: PRO40 PO (09:31)
[2022-01-01] MEDS ORDERED: AUG875 PO (09:50)
[2022-01-01 10:15] VITALS: BP_SYST 133
--- NOTE | 2022-01-01 10:20 | NUR ---
[facility]/HCP CM ms Barrera was called, re: to arrange [facility] (Post op with Covid).
--- NOTE | 2022-01-01 11:19 | NUR ---
Recd order to d/c pt home with home health. According to d/c landscape architect and planner, pt is ok to go home today, that home [place] has been arranged. also ok to be d/c by charge nurse. Provided pt with d/c instructions, and pt is to go home with EUGENIE drain, educated pt and family members how to drain EUGENIE. Also provided with pt, written instructions on how to empty drain and record output. Both pt and family verbalized understanding. Dr Torres at the bedside and spoke to pt extensively about discharge. all questions answered and addressed. d/c'd iv site. all belongings given to pt. escorted out via wheelchair.
--- NOTE | 2022-01-01 14:44 | NUR ---
Disposition code 06
== END 2022-01-01 11:05 | disposition home health service (06) | DRG 853 ==
LOC: SED 14:18 → STU 21:18 → SMU 12-24 13:15 → STU 12-27 23:15 → SMU 12-29 13:00
PROVIDERS: ADMIT Preventive Medicine Preventive Medicine/Occupational Environmental Medicine; ATTEND Preventive Medicine Preventive Medicine/Occupational Environmental Medicine
PROC: BF121ZZ Fluoroscopy of Gallbladder using Low Osmolar Contrast (ICD-10-PCS; 2021-12-27)
PROC: 0FT44ZZ Resection of Gallbladder, Percutaneous Endoscopic Approach (ICD-10-PCS; principal; 2021-12-27 12:20)
DX: A41.9 Sepsis, unspecified organism (principal); E43 Unspecified severe protein-calorie malnutrition; U07.1 COVID-19; E44.0 Moderate protein-calorie malnutrition; K80.62 Calculus of gallbladder and bile duct with acute cholecystitis without obstruction; Z68.1 Body mass index [BMI] 19.9 or less, adult; K56.7 Ileus, unspecified; E87.6 Hypokalemia; I11.0 Hypertensive heart disease with heart failure; E87.5 Hyperkalemia; K21.9 Gastro-esophageal reflux disease without esophagitis; K59.00 Constipation, unspecified; N28.1 Cyst of kidney, acquired; E83.51 Hypocalcemia; I25.10 Atherosclerotic heart disease of native coronary artery without angina pectoris; E88.09 Other disorders of plasma-protein metabolism, not elsewhere classified; E83.52 Hypercalcemia; D64.9 Anemia, unspecified; I50.9 Heart failure, unspecified
CPT/HCPCS: 36415; 71045; 76000; 76376; 76705; 78226; 80048; 80053; 81000; 82962; 83605; 83690; 84484; 85025; 85610-TC; 85651-TC; 85730-TC; 86140; 87040; 87081; 87230-TC; 88304; 93005; 93306; 96374; 96375; 99285; A9537; C1727; C1758; C9290; G0378; J0330; J0690; J0696; J1100; J2405; J2543; J2710; J3010; J3480; J3490; J7050; J7060; Q9967

== ENCOUNTER 2022-02-07 11:42 | Day surgery (SDC) | payer OTHER ==
[~2022-02-07] VITALS: Ht 142.2 cm; Wt 32.7 kg
[~2022-02-07 11:42] MED LIST: AUG875 PO; HYDR-3927 PO; PRO40 PO
[2022-02-07] MEDS ORDERED: PROPOFOL 200MG/ 20ML VIAL (DIPRIVAN) IV ONE (11:43)
[2022-02-07] MEDS ORDERED: SEVOFLURANE 15 MIN GAS INH ONE (11:43)
[2022-02-07] MEDS ORDERED: LR 1,000 ML IV.SOLN IV ONE (11:43)
[2022-02-07] MEDS ORDERED: ONDANSETRON HCL 4 MG/2 ML VIAL IVP ONE (11:43)
[2022-02-07] MEDS ORDERED: SUGAMMADEX SODIUM 200 MG/2 ML VIAL IV ONE (11:43)
[2022-02-07] MEDS ORDERED: ROCURONIUM BROMIDE 10 MG/ML (ZEMURON) IV ONE (11:43)
[2022-02-07] MEDS ORDERED: INDOMETHACIN 50 MG SUPP.RECT RC ONE (13:00)
[2022-02-07] MEDS ORDERED: ONDANSETRON HCL 4 MG/2 ML VIAL IVP PRN (14:30)
[2022-02-07] MEDS ORDERED: METOCLOPRAMIDE HCL 10 MG/2 ML VIAL IVP PRN (14:30)
[2022-02-07] MEDS ORDERED: MORPHINE 4 MG INJ. 4 MG/ML VIAL IVP PRN (14:30)
[2022-02-07] MEDS ORDERED: MEPERIDINE HCL/PF 25 MG/ML DISP.SYRIN IVP PRN (14:30)
[2022-02-07] MEDS ORDERED: ACETAMINOPHEN 325 MG TABLET PO ONE (14:30)
[2022-02-07 17:00] VITALS: BP_SYST 148
== END 2022-02-07 17:00 | disposition home or self-care (01) ==
LOC: SDS 11:42
PROVIDERS: ATTEND Internal Medicine
DX: Z46.59 Encounter for fitting and adjustment of other gastrointestinal appliance and device (principal); K80.20 Calculus of gallbladder without cholecystitis without obstruction; I10 Essential (primary) hypertension; M19.90 Unspecified osteoarthritis, unspecified site; Z91.040 Latex allergy status; E78.00 Pure hypercholesterolemia, unspecified; Z90.710 Acquired absence of both cervix and uterus; Z88.6 Allergy status to analgesic agent
CPT/HCPCS: 36415; 43276; 93005; 71045; 74328; U0003; C1748; J3490; J2405; J2704; Q9967; J7120; C1769; 76000